=== PATIENT | male | born 1940 | race African-American/Black ===

== ENCOUNTER 2019-11-08 00:29 | Inpatient (IN) | payer MEDICARE, MEDICAID ==
[~2019-11-08] VITALS: Ht 177.8 cm; Wt 116.7 kg
[~2019-11-08 00:29] MED LIST: ASPI-1158 MT; ATOR40TA70 MT; DILT360C27 MT; FURO40TA5 PO; HYDR-4135 PO
[2019-11-08] MEDS ORDERED: ACETAMINOPHEN 500MG TABLET PO ONE (01:15)
[2019-11-08 01:38] LABS: BASOPHILS % 0.2 % (0.0-2.0); EOSINOPHILS % 0.2 % (0.0-5.0); HEMATOCRIT. 33.5 % (42.0-52.0); HEMOGLOBIN. 10.7 g/dL (14.0-18.0); LYMPHOCYTES % 10.2 % (20.0-50.0); MEAN CORPUSCULAR HEMOGLOBIN 26.9 pg (28.0-32.0); MONOCYTES % 11.6 % (2.0-8.0); NEUTROPHILS % 77.8 % (40.0-76.0); PLATELET 196 x1000/uL (130-400); RED BLOOD CELL COUNT 3.98 mill/uL (4.7-6.1); RED CELL DISTRIBUTION WIDTH 15.8 % (11.6-14.6)
[2019-11-08 01:46] LABS: CHLORIDE 105 mEq/L (98-107)
[2019-11-08 01:55] LABS: D-DIMER 5.07 mg/L FEU (<0.50); PROTHROMBIN TIME 11.1 sec (9.6-11.0)
[2019-11-08 01:56] LABS: CREATINE KINASE 352 IU/L (39-308)
[2019-11-08] MEDS ORDERED: MAGNESIUM 2 G PREMIX 50 ML IV ONE (02:00)
[2019-11-08] MEDS ORDERED: PIPERACILLIN/TAZOBACTAM 3.375GM/50ML PREMIX IV SCH (02:00)
[2019-11-08] MEDS ORDERED: VANCOMYCIN 1 G PREMIX 200 ML IV SCH ×3 (02:00→21:00)
[2019-11-08] MEDS ORDERED: AZITHROMYCIN 500 MG in DEXT 5% WATER 250 ML IV SCH ×2 (02:00→11:00)
[2019-11-08] MEDS ORDERED: CALCIUM GLUCONATE 100MG/ML 10ML VIAL IV ONE (02:00)
[2019-11-08] MEDS ORDERED: ASPIRIN 81MG TABLET PO SCH (02:15)
[2019-11-08] MEDS ORDERED: CALCIUM GLUCONATE 1,000 MG in DEXT 5% WATER 100 ML IV SCH (03:00)
[2019-11-08 03:08] LABS: CLARITY URINE CLOUDY (CLEAR); COLOR URINE YELLOW (YELLOW); KETONES URINE NEGATIVE (NEGATIVE); LEUKOCYTE ESTERASE URINE 3+ (NEGATIVE); NITRITE URINE NEGATIVE (NEGATIVE); OCCULT BLOOD URINE NEGATIVE (NEGATIVE); PROTEIN URINE 2+ (NEGATIVE); SPECIFIC GRAVITY URINE 1.013 (1.005-1.030); UROBILINOGEN URINE 0.2 E.U./dL (0.2-1.0)
[2019-11-08] MEDS ORDERED: GUAIFENESIN 200MG/10ML SUGAR FREE UDC PO PRN (11:00)
[2019-11-08] MEDS ORDERED: PIPERACILLIN/TAZ 3.375G PREMIX 50 ML IV SCH (11:00)
[2019-11-08] MEDS ORDERED: ENOXAPARIN 40MG/0.4ML SYR SUBCUT SCH (11:00)
[2019-11-08] MEDS ORDERED: ONDANSETRON HCL 4MG/2ML INJ IV PRN (11:00)
[2019-11-08] MEDS ORDERED: LIDOCAINE HCL/PF 1% 2ML VIAL ONE (11:12)
[2019-11-08] MEDS ORDERED: PIPERACILLIN/TAZ 3.375G PREMIX 50 ML IV NR (11:30)
[2019-11-08] MEDS: CLONIDINE 0.1MG TABLET PO PRN (11:31)
[2019-11-08 12:00] VITALS: BP 155/89
[2019-11-08 12:00] LABS: BG BASE EXCESS 1.9 mmol/L (-2.0-2.0); BG CARBOXYHEMOGLOBIN 0.3 % (0.5-1.5); BG DEOXYHEMOGLOBIN 19.2 % (0.0-5.0); BG FRACTION INSPIRED OXYGEN 21; BG HCO3 ACT 26.3 mmol/L (22.0-26.0); BG METHEMOGLOBIN 0.2 % (0.0-1.5); BG OXYGEN SATURATION 80.7 % (92.0-98.5); BG OXYHEMOGLOBIN 80.3 % (94.0-97.0); BG PCO2 40.7 mmHg (35.0-45.0); BG PH 7.429 (7.350-7.450); BG PO2 46.7 mmHg (75.0-100.0); BG SAMPLE SITE RIGHT RADIAL; BG TOTAL HEMOGLOBIN 10.5 g/dL (12.0-18.0); BG VENT MODE ROOM AIR
[2019-11-08 12:25] VITALS: BP 155/89
[2019-11-08] MEDS ORDERED: IPRATROPIUM/ALBUTEROL 0.5-3(2.5)MG/3ML NEB HHN SCH (13:00)
[2019-11-08 16:00] VITALS: BP 148/78
[2019-11-08] MEDS: HYDRALAZINE HCL 50MG TABLET PO SCH ×2 (16:51→22:29)
[2019-11-08] MEDS: ENOXAPARIN 30MG/0.3ML SYR SUBCUT SCH (16:51)
[2019-11-08] MEDS: POTASSIUM CHLORIDE 20MEQ TABLET SR PO SCH (16:52)
[2019-11-08] MEDS: FUROSEMIDE 40MG TABLET PO SCH (16:52)
[2019-11-08] MEDS: PIPERACILLIN/TAZOBACTAM 2.25 G in DEXTROSE 5% WATER 50 ML IV SCH (18:31)
[2019-11-08 20:00] VITALS: BP 156/80
[2019-11-08] MEDS: ACETAMINOPHEN 325MG TABLET PO PRN (21:43)
[2019-11-08] MEDS: GUAIFENESIN 600MG ER TABLET PO SCH ×2 (22:24→22:29)
[2019-11-08] MEDS: DILTIAZEM HCL 30MG TABLET PO SCH (22:28)
[2019-11-09] VITALS: BP 113/61
[2019-11-09] MEDS: PIPERACILLIN/TAZOBACTAM 2.25 G in DEXTROSE 5% WATER 50 ML IV SCH ×4 (00:34→17:53)
[2019-11-09 04:00] VITALS: BP 101/57
[2019-11-09] MEDS: DILTIAZEM HCL 30MG TABLET PO SCH ×3 (05:35→22:05)
[2019-11-09] MEDS: HYDRALAZINE HCL 50MG TABLET PO SCH (05:37)
[2019-11-09] MEDS: ACETAMINOPHEN 325MG TABLET PO PRN ×2 (05:42→20:30)
[2019-11-09 06:56] LABS: BASOPHILS % 0.4 % (0.0-2.0); EOSINOPHILS % 0.1 % (0.0-5.0); HEMATOCRIT. 31.6 % (42.0-52.0); HEMOGLOBIN. 10.4 g/dL (14.0-18.0); LYMPHOCYTES % 12.2 % (20.0-50.0); MEAN CORPUSCULAR HEMOGLOBIN 27.5 pg (28.0-32.0); MEAN PLATELET VOLUME 8.1 fl (7.4-10.4); MONOCYTES % 7.5 % (2.0-8.0); NEUTROPHILS % 79.8 % (40.0-76.0); PLATELET 184 x1000/uL (130-400); RED BLOOD CELL COUNT 3.77 mill/uL (4.7-6.1); RED CELL DISTRIBUTION WIDTH 16.3 % (11.6-14.6)
[2019-11-09 08:00] VITALS: BP 131/81
[2019-11-09] MEDS: AZITHROMYCIN 250 MG in DEXT 5% WATER 250 ML IV SCH (08:08)
[2019-11-09] MEDS: ENOXAPARIN 30MG/0.3ML SYR SUBCUT SCH ×2 (10:17→20:29)
[2019-11-09] MEDS: FUROSEMIDE 40MG TABLET PO SCH (10:17)
[2019-11-09] MEDS: ASPIRIN 81MG TABLET PO SCH (10:17)
[2019-11-09] MEDS: POTASSIUM CHLORIDE 20MEQ TABLET SR PO SCH (10:17)
[2019-11-09 12:00] VITALS: BP 113/58
[2019-11-09 16:00] VITALS: BP 126/52
[2019-11-09] MEDS ORDERED: DEXTROSE 50% WATER 50ML SYRINGE IV PRN (19:15)
[2019-11-09 20:00] VITALS: BP 158/71
[2019-11-09] MEDS: ALBUTEROL 6.7GM HFA INHALER ORI SCH ×2 (20:00→22:30)
[2019-11-09] MEDS: GUAIFENESIN 600MG ER TABLET PO SCH (20:29)
[2019-11-09] MEDS: BLOOD SUGAR DIAGNOSTIC STRIP TEST SCH (20:31)
[2019-11-09] MEDS: INSULIN LISPRO 100 UNITS/ML SUBCUT SCH (20:38)
[2019-11-10] VITALS: BP 131/45
[2019-11-10] MEDS: PIPERACILLIN/TAZOBACTAM 2.25 G in DEXTROSE 5% WATER 50 ML IV SCH ×4 (00:17→17:35)
[2019-11-10] MEDS: ACETAMINOPHEN 325MG TABLET PO PRN ×3 (00:17→21:12)
[2019-11-10] MEDS: ALBUTEROL 6.7GM HFA INHALER ORI SCH ×4 (02:57→20:00)
[2019-11-10 04:00] VITALS: BP 128/85
[2019-11-10] MEDS: DILTIAZEM HCL 30MG TABLET PO SCH ×3 (05:42→21:13)
[2019-11-10] MEDS: AZITHROMYCIN 250 MG in DEXT 5% WATER 250 ML IV SCH ×2 (05:49→17:35)
[2019-11-10 06:03] LABS: BASOPHILS % 0.4 % (0.0-2.0); EOSINOPHILS % 1.7 % (0.0-5.0); HEMATOCRIT. 31.1 % (42.0-52.0); HEMOGLOBIN. 10.3 g/dL (14.0-18.0); LYMPHOCYTES % 15.2 % (20.0-50.0); MEAN CORPUSCULAR VOLUME 84.4 fL (80.0-94.0); MEAN PLATELET VOLUME 8.3 fl (7.4-10.4); MONOCYTES % 7.8 % (2.0-8.0); NEUTROPHILS % 74.9 % (40.0-76.0); PLATELET 174 x1000/uL (130-400); RED BLOOD CELL COUNT 3.69 mill/uL (4.7-6.1); RED CELL DISTRIBUTION WIDTH 16.3 % (11.6-14.6)
[2019-11-10 06:19] LABS: CHLORIDE 105 mEq/L (98-107)
[2019-11-10 06:26] LABS: PHOSPHORUS 2.8 mg/dL (2.5-4.9)
[2019-11-10] MEDS: BLOOD SUGAR DIAGNOSTIC STRIP TEST SCH ×4 (07:51→21:00)
[2019-11-10 08:00] VITALS: BP 102/85
[2019-11-10] MEDS: ENOXAPARIN 30MG/0.3ML SYR SUBCUT SCH (09:28)
[2019-11-10] MEDS: POTASSIUM CHLORIDE 20MEQ TABLET SR PO SCH (09:29)
[2019-11-10] MEDS: GUAIFENESIN 600MG ER TABLET PO SCH ×2 (09:29→21:12)
[2019-11-10] MEDS: ASPIRIN 81MG TABLET PO SCH (09:29)
[2019-11-10] MEDS: FUROSEMIDE 40MG TABLET PO SCH (09:29)
[2019-11-10] MEDS: INSULIN LISPRO 100 UNITS/ML SUBCUT SCH ×4 (09:30→21:00)
[2019-11-10 12:00] VITALS: BP 112/46
[2019-11-10] MEDS ORDERED: NON FORMULARY PATIENT HOME MED XX SCH (15:45)
[2019-11-10] MEDS: FLUTICASONE FUROATE 100 1 INH/CAP ORI SCH (17:38)
[2019-11-10 20:00] VITALS: BP 101/72
[2019-11-11 00:05] VITALS: BP 129/64
[2019-11-11] MEDS: PIPERACILLIN/TAZOBACTAM 2.25 G in DEXTROSE 5% WATER 50 ML IV SCH ×5 (00:18→23:37)
[2019-11-11] MEDS: ALBUTEROL 6.7GM HFA INHALER ORI SCH ×4 (02:17→20:37)
[2019-11-11 04:00] VITALS: BP 145/59
[2019-11-11] MEDS: ACETAMINOPHEN 325MG TABLET PO PRN (05:40)
[2019-11-11] MEDS: DILTIAZEM HCL 30MG TABLET PO SCH ×3 (05:41→21:05)
[2019-11-11] MEDS: BLOOD SUGAR DIAGNOSTIC STRIP TEST SCH ×4 (05:41→21:14)
[2019-11-11] MEDS: INSULIN LISPRO 100 UNITS/ML SUBCUT SCH ×4 (07:53→21:00)
[2019-11-11 08:00] VITALS: BP 102/46
[2019-11-11] MEDS: ENOXAPARIN 40MG/0.4ML SYR SUBCUT SCH (09:02)
[2019-11-11] MEDS: ASPIRIN 81MG TABLET PO SCH (09:02)
[2019-11-11] MEDS: FUROSEMIDE 40MG TABLET PO SCH (09:02)
[2019-11-11] MEDS: GUAIFENESIN 600MG ER TABLET PO SCH ×2 (09:02→20:37)
[2019-11-11] MEDS: FLUTICASONE FUROATE 100 1 INH/CAP ORI SCH ×2 (09:57→16:43)
[2019-11-11 11:12] LABS: BASOPHILS % 0.2 % (0.0-2.0); EOSINOPHILS % 1.7 % (0.0-5.0); HEMATOCRIT. 27.2 % (42.0-52.0); HEMOGLOBIN. 8.9 g/dL (14.0-18.0); LYMPHOCYTES % 8.8 % (20.0-50.0); MEAN CORPUSCULAR HEMOGLOBIN 27.4 pg (28.0-32.0); MEAN CORPUSCULAR VOLUME 83.4 fL (80.0-94.0); MEAN PLATELET VOLUME 7.8 fl (7.4-10.4); MONOCYTES % 5.2 % (2.0-8.0); NEUTROPHILS % 84.1 % (40.0-76.0); PLATELET 175 x1000/uL (130-400); RED BLOOD CELL COUNT 3.26 mill/uL (4.7-6.1); RED CELL DISTRIBUTION WIDTH 15.9 % (11.6-14.6)
[2019-11-11 12:00] VITALS: BP 152/56
[2019-11-11] MEDS: POTASSIUM CHLORIDE 20MEQ/PACKET PO SCH (13:18)
[2019-11-11 16:00] VITALS: BP 162/48
[2019-11-11] MEDS: AZITHROMYCIN 250 MG in DEXT 5% WATER 250 ML IV SCH (17:08)
[2019-11-11 20:00] VITALS: BP 168/64
[2019-11-12] VITALS (7 sets, daily range): BP systolic 115–177; BP diastolic 53–83
[2019-11-12] MEDS: ACETAMINOPHEN 325MG TABLET PO PRN ×3 (02:42→22:22)
[2019-11-12] MEDS: PIPERACILLIN/TAZOBACTAM 2.25 G in DEXTROSE 5% WATER 50 ML IV SCH ×4 (05:28→23:53)
[2019-11-12] MEDS: CLONIDINE 0.1MG TABLET PO PRN ×2 (05:29→22:22)
[2019-11-12] MEDS: DILTIAZEM HCL 30MG TABLET PO SCH ×3 (05:29→22:08)
[2019-11-12] MEDS: BLOOD SUGAR DIAGNOSTIC STRIP TEST SCH ×4 (06:57→21:00)
[2019-11-12] MEDS: ASPIRIN 81MG TABLET PO SCH (09:27)
[2019-11-12] MEDS: FUROSEMIDE 40MG TABLET PO SCH (09:28)
[2019-11-12] MEDS: GUAIFENESIN 600MG ER TABLET PO SCH ×2 (09:28→22:07)
[2019-11-12] MEDS: POTASSIUM CHLORIDE 20MEQ/PACKET PO SCH (09:28)
[2019-11-12] MEDS: ENOXAPARIN 40MG/0.4ML SYR SUBCUT SCH (09:28)
[2019-11-12] MEDS: INSULIN LISPRO 100 UNITS/ML SUBCUT SCH ×4 (09:29→22:47)
[2019-11-12 10:40] LABS: BASOPHILS % 0.2 % (0.0-2.0); EOSINOPHILS % 0.5 % (0.0-5.0); HEMATOCRIT. 27.5 % (42.0-52.0); MEAN CORPUSCULAR HEMOGLOBIN 27.3 pg (28.0-32.0); MEAN CORPUSCULAR VOLUME 83.4 fL (80.0-94.0); MEAN PLATELET VOLUME 7.8 fl (7.4-10.4); MONOCYTES % 6.3 % (2.0-8.0); PLATELET 191 x1000/uL (130-400); RED CELL DISTRIBUTION WIDTH 16.3 % (11.6-14.6)
[2019-11-12] MEDS: FLUTICASONE FUROATE 100 1 INH/CAP ORI SCH ×2 (12:13→18:11)
[2019-11-12] MEDS: ALBUTEROL 6.7GM HFA INHALER ORI SCH (13:28)
[2019-11-12] MEDS: AZITHROMYCIN 250 MG TABLET PO SCH (17:38)
[2019-11-13 00:44] VITALS: BP 146/48
[2019-11-13] MEDS: ALBUTEROL 6.7GM HFA INHALER ORI SCH ×5 (03:38→22:21)
[2019-11-13] MEDS: ACETAMINOPHEN 325MG TABLET PO PRN ×2 (03:38→09:38)
[2019-11-13 04:00] VITALS: BP 123/34
[2019-11-13] MEDS: PIPERACILLIN/TAZOBACTAM 2.25 G in DEXTROSE 5% WATER 50 ML IV SCH ×3 (06:08→17:22)
[2019-11-13] MEDS: DILTIAZEM HCL 30MG TABLET PO SCH ×3 (06:40→21:47)
[2019-11-13] MEDS: BLOOD SUGAR DIAGNOSTIC STRIP TEST SCH ×4 (08:02→21:46)
[2019-11-13] MEDS: FLUTICASONE FUROATE 100 1 INH/CAP ORI SCH ×2 (09:37→17:22)
[2019-11-13] MEDS: GUAIFENESIN 600MG ER TABLET PO SCH ×2 (09:38→21:48)
[2019-11-13] MEDS: POTASSIUM CHLORIDE 20MEQ/PACKET PO SCH (09:38)
[2019-11-13] MEDS: FUROSEMIDE 40MG TABLET PO SCH (09:38)
[2019-11-13] MEDS: ASPIRIN 81MG TABLET PO SCH (09:38)
[2019-11-13] MEDS: ENOXAPARIN 30MG/0.3ML SYR SUBCUT SCH ×2 (09:39→21:46)
[2019-11-13] MEDS: INSULIN LISPRO 100 UNITS/ML SUBCUT SCH ×4 (09:51→21:00)
[2019-11-13] MEDS: HYDRALAZINE HCL 25MG TABLET PO SCH ×2 (14:05→21:47)
[2019-11-13] MEDS: METHYLPREDNISOLONE SOD SUCC 40 MG/ML VIAL IV SCH ×2 (15:11→17:22)
[2019-11-13] MEDS: AZITHROMYCIN 250 MG TABLET PO SCH (17:23)
[2019-11-13 20:00] VITALS: BP 107/88
[2019-11-13] MEDS ORDERED: INSULIN GLARGINE UD 100 UNITS/ML SYR SUBCUT SCH (22:00)
[2019-11-14] VITALS: BP 183/89
[2019-11-14] MEDS: ALBUTEROL 6.7GM HFA INHALER ORI SCH (02:00)
[2019-11-14 04:00] VITALS: BP 181/111
[2019-11-14] MEDS: DILTIAZEM HCL 30MG TABLET PO SCH ×3 (06:17→21:07)
[2019-11-14] MEDS: HYDRALAZINE HCL 25MG TABLET PO SCH ×3 (06:18→21:06)
[2019-11-14] MEDS: BLOOD SUGAR DIAGNOSTIC STRIP TEST SCH ×4 (07:13→21:17)
[2019-11-14 08:00] VITALS: BP 165/75
[2019-11-14] MEDS: POTASSIUM CHLORIDE 20MEQ/PACKET PO SCH (08:35)
[2019-11-14] MEDS: ENOXAPARIN 30MG/0.3ML SYR SUBCUT SCH ×2 (08:35→21:08)
[2019-11-14] MEDS: INSULIN LISPRO 100 UNITS/ML SUBCUT SCH ×4 (08:36→22:28)
[2019-11-14] MEDS: GUAIFENESIN 600MG ER TABLET PO SCH ×2 (08:36→21:06)
[2019-11-14] MEDS: FUROSEMIDE 40MG TABLET PO SCH (08:36)
[2019-11-14] MEDS: METHYLPREDNISOLONE SOD SUCC 40 MG/ML VIAL IV SCH ×2 (08:36→16:42)
[2019-11-14] MEDS: ASPIRIN 81MG TABLET PO SCH (08:36)
[2019-11-14] MEDS: FLUTICASONE FUROATE 100 1 INH/CAP ORI SCH ×2 (09:00→17:00)
[2019-11-14 12:30] VITALS: BP 176/99
[2019-11-14 16:00] VITALS: BP 164/91
[2019-11-14 20:00] VITALS: BP 157/72
[2019-11-14] MEDS: INSULIN GLARGINE UD 100 UNITS/ML SYR SUBCUT SCH (22:28)
[2019-11-15] MEDS: ALBUTEROL 6.7GM HFA INHALER ORI SCH ×4 (02:00→20:00)
[2019-11-15 04:00] VITALS: BP 169/88
[2019-11-15] MEDS: HYDRALAZINE HCL 25MG TABLET PO SCH (05:07)
[2019-11-15] MEDS: DILTIAZEM HCL 30MG TABLET PO SCH ×3 (05:08→21:19)
[2019-11-15] MEDS: BLOOD SUGAR DIAGNOSTIC STRIP TEST SCH ×4 (06:13→21:00)
[2019-11-15 08:30] VITALS: BP 157/73
[2019-11-15] MEDS: ASPIRIN 81MG TABLET PO SCH (08:32)
[2019-11-15] MEDS: ENOXAPARIN 30MG/0.3ML SYR SUBCUT SCH ×2 (08:32→21:18)
[2019-11-15] MEDS: GUAIFENESIN 600MG ER TABLET PO SCH ×2 (08:32→21:26)
[2019-11-15] MEDS: METHYLPREDNISOLONE SOD SUCC 40 MG/ML VIAL IV SCH (08:32)
[2019-11-15] MEDS: FUROSEMIDE 40MG TABLET PO SCH (08:32)
[2019-11-15] MEDS: POTASSIUM CHLORIDE 20MEQ/PACKET PO SCH (08:33)
[2019-11-15] MEDS: INSULIN LISPRO 100 UNITS/ML SUBCUT SCH ×4 (08:34→22:26)
[2019-11-15] MEDS: FLUTICASONE FUROATE 100 1 INH/CAP ORI SCH ×2 (09:00→16:51)
[2019-11-15 10:29] LABS: HEMATOCRIT. 35.5 % (42.0-52.0); HEMOGLOBIN. 11.8 g/dL (14.0-18.0); MEAN CORPUSCULAR HEMOGLOBIN 27.7 pg (28.0-32.0); MEAN CORPUSCULAR VOLUME 83.2 fL (80.0-94.0); MEAN PLATELET VOLUME 8.3 fl (7.4-10.4); PLATELET 290 x1000/uL (130-400); RED BLOOD CELL COUNT 4.27 mill/uL (4.7-6.1); RED CELL DISTRIBUTION WIDTH 16.8 % (11.6-14.6)
[2019-11-15 10:48] LABS: PHOSPHORUS 2.7 mg/dL (2.5-4.9)
[2019-11-15 12:30] VITALS: BP 133/78
[2019-11-15 12:45] LABS: NUCLEATED RED BLOOD CELLS 1 /100 WBC; PLATELET ESTIMATE NORMAL
[2019-11-15] MEDS: HYDRALAZINE HCL 50MG TABLET PO SCH ×2 (14:23→21:19)
[2019-11-15 16:00] VITALS: BP 107/85
[2019-11-15] MEDS ORDERED: METHYLPREDNISOLONE SOD SUCC 40 MG/ML VIAL IV SCH (17:00)
[2019-11-15 20:00] VITALS: BP 174/127
[2019-11-15] MEDS: INSULIN GLARGINE UD 100 UNITS/ML SYR SUBCUT SCH (21:25)
[2019-11-15 22:59] VITALS: BP 165/90
[2019-11-16] VITALS: BP 189/71
[2019-11-16] MEDS: CLONIDINE 0.1MG TABLET PO PRN (00:38)
[2019-11-16] MEDS: ALBUTEROL 6.7GM HFA INHALER ORI SCH ×5 (01:12→21:39)
[2019-11-16 04:00] VITALS: BP 191/109
[2019-11-16] MEDS: DILTIAZEM HCL 30MG TABLET PO SCH ×3 (05:10→21:33)
[2019-11-16] MEDS: HYDRALAZINE HCL 50MG TABLET PO SCH (05:10)
[2019-11-16 08:00] VITALS: BP 137/90
[2019-11-16] MEDS: BLOOD SUGAR DIAGNOSTIC STRIP TEST SCH ×4 (08:36→21:19)
[2019-11-16] MEDS: GUAIFENESIN 600MG ER TABLET PO SCH ×2 (08:41→21:32)
[2019-11-16] MEDS: FUROSEMIDE 40MG TABLET PO SCH (08:41)
[2019-11-16] MEDS: ASPIRIN 81MG TABLET PO SCH (08:41)
[2019-11-16] MEDS: INSULIN LISPRO 100 UNITS/ML SUBCUT SCH ×4 (08:42→21:31)
[2019-11-16] MEDS: ENOXAPARIN 30MG/0.3ML SYR SUBCUT SCH ×2 (08:42→21:31)
[2019-11-16] MEDS: FLUTICASONE FUROATE 100 1 INH/CAP ORI SCH ×2 (09:00→16:47)
[2019-11-16] MEDS ORDERED: INSULIN GLARGINE UD 100 UNITS/ML SYR SUBCUT SCH (10:00)
[2019-11-16 12:00] VITALS: BP 150/83
[2019-11-16] MEDS: HYDRALAZINE HCL 100MG TABLET PO SCH ×2 (13:00→21:33)
[2019-11-16 16:00] VITALS: BP 153/86
[2019-11-16 20:00] VITALS: BP 193/91
[2019-11-16] MEDS: INSULIN GLARGINE UD 100 UNITS/ML SYR SUBCUT SCH (21:32)
[2019-11-17] VITALS (7 sets, daily range): BP systolic 126–172; BP diastolic 67–124
[2019-11-17] MEDS: ALBUTEROL 6.7GM HFA INHALER ORI SCH ×4 (03:57→20:00)
[2019-11-17] MEDS: HYDRALAZINE HCL 100MG TABLET PO SCH ×3 (05:33→22:32)
[2019-11-17] MEDS: DILTIAZEM HCL 30MG TABLET PO SCH (05:33)
[2019-11-17] MEDS: BLOOD SUGAR DIAGNOSTIC STRIP TEST SCH ×4 (06:22→22:19)
[2019-11-17] MEDS: INSULIN LISPRO 100 UNITS/ML SUBCUT SCH ×4 (08:10→22:30)
[2019-11-17] MEDS: ASPIRIN 81MG TABLET PO SCH (09:35)
[2019-11-17] MEDS: FUROSEMIDE 40MG TABLET PO SCH (09:35)
[2019-11-17] MEDS: GUAIFENESIN 600MG ER TABLET PO SCH ×2 (09:35→22:29)
[2019-11-17] MEDS: ENOXAPARIN 30MG/0.3ML SYR SUBCUT SCH ×2 (09:35→22:33)
[2019-11-17] MEDS: FLUTICASONE FUROATE 100 1 INH/CAP ORI SCH ×2 (10:05→17:46)
[2019-11-17] MEDS: SPIRONOLACTONE 25MG TABLET PO SCH (12:58)
[2019-11-17] MEDS: PREDNISONE 20MG TABLET PO SCH (12:59)
[2019-11-17] MEDS: DILTIAZEM HCL 120MG CAPSULE CD 24HR PO SCH ×2 (12:59→22:31)
[2019-11-17] MEDS: INSULIN GLARGINE UD 100 UNITS/ML SYR SUBCUT SCH (22:30)
[2019-11-18] VITALS: BP 161/71
[2019-11-18] MEDS: ALBUTEROL 6.7GM HFA INHALER ORI SCH (03:11)
[2019-11-18 04:00] VITALS: BP 158/106
[2019-11-18] MEDS: BLOOD SUGAR DIAGNOSTIC STRIP TEST SCH ×4 (06:49→21:00)
[2019-11-18] MEDS: HYDRALAZINE HCL 100MG TABLET PO SCH ×3 (06:54→22:47)
[2019-11-18 08:00] VITALS: BP 143/97
[2019-11-18] MEDS ORDERED: INSULIN GLARGINE UD 100 UNITS/ML SYR SUBCUT SCH (10:00)
[2019-11-18] MEDS: ENOXAPARIN 30MG/0.3ML SYR SUBCUT SCH ×2 (10:16→22:48)
[2019-11-18] MEDS: DILTIAZEM HCL 180MG CAPSULE CD 24HR PO SCH ×2 (10:17→22:47)
[2019-11-18] MEDS: GUAIFENESIN 600MG ER TABLET PO SCH ×2 (10:17→22:47)
[2019-11-18] MEDS: PREDNISONE 20MG TABLET PO SCH (10:17)
[2019-11-18] MEDS: ASPIRIN 81MG TABLET PO SCH (10:17)
[2019-11-18] MEDS: FUROSEMIDE 40MG TABLET PO SCH (10:17)
[2019-11-18] MEDS: FLUTICASONE FUROATE 100 1 INH/CAP ORI SCH ×2 (10:18→18:47)
[2019-11-18] MEDS: SPIRONOLACTONE 25MG TABLET PO SCH (10:18)
[2019-11-18] MEDS: INSULIN LISPRO 100 UNITS/ML SUBCUT SCH ×4 (10:19→23:58)
[2019-11-18 12:00] VITALS: BP 135/99
[2019-11-18 16:00] VITALS: BP 128/86
[2019-11-18 21:41] VITALS: BP 161/78
[2019-11-18] MEDS: INSULIN GLARGINE UD 100 UNITS/ML SYR SUBCUT SCH (23:58)
[2019-11-19] VITALS: BP 171/79
[2019-11-19 04:00] VITALS: BP 163/74
[2019-11-19] MEDS: HYDRALAZINE HCL 100MG TABLET PO SCH ×3 (06:00→21:27)
[2019-11-19] MEDS: BLOOD SUGAR DIAGNOSTIC STRIP TEST SCH ×4 (06:15→21:27)
[2019-11-19 06:26] LABS: HEMATOCRIT. 32.1 % (42.0-52.0); HEMOGLOBIN. 10.6 g/dL (14.0-18.0); MEAN CORPUSCULAR HEMOGLOBIN 27.6 pg (28.0-32.0); MEAN CORPUSCULAR VOLUME 83.2 fL (80.0-94.0); PLATELET 314 x1000/uL (130-400); RED BLOOD CELL COUNT 3.85 mill/uL (4.7-6.1); RED CELL DISTRIBUTION WIDTH 16.4 % (11.6-14.6)
[2019-11-19 07:01] LABS: PHOSPHORUS 3.4 mg/dL (2.5-4.9)
[2019-11-19 08:00] VITALS: BP 148/73
[2019-11-19] MEDS: DILTIAZEM HCL 180MG CAPSULE CD 24HR PO SCH ×2 (09:22→21:00)
[2019-11-19] MEDS: ASPIRIN 81MG TABLET PO SCH (09:22)
[2019-11-19] MEDS: PREDNISONE 20MG TABLET PO SCH (09:22)
[2019-11-19] MEDS: FUROSEMIDE 40MG TABLET PO SCH (09:23)
[2019-11-19] MEDS: SPIRONOLACTONE 25MG TABLET PO SCH (09:23)
[2019-11-19] MEDS: FLUTICASONE FUROATE 100 1 INH/CAP ORI SCH ×2 (09:24→17:02)
[2019-11-19] MEDS: ENOXAPARIN 30MG/0.3ML SYR SUBCUT SCH ×2 (09:25→21:24)
[2019-11-19] MEDS: GUAIFENESIN 600MG ER TABLET PO SCH ×3 (09:27→21:26)
[2019-11-19] MEDS: INSULIN LISPRO 100 UNITS/ML SUBCUT SCH ×4 (09:28→21:30)
[2019-11-19 11:03] LABS: PLATELET ESTIMATE NORMAL
[2019-11-19 12:00] VITALS: BP 179/90
[2019-11-19] MEDS: DOXAZOSIN MESYLATE 4MG TABLET PO SCH (12:00)
[2019-11-19] MEDS: INSULIN GLARGINE UD 100 UNITS/ML SYR SUBCUT SCH ×2 (12:01→21:30)
[2019-11-19 16:00] VITALS: BP 114/65
[2019-11-19 20:00] VITALS: BP 117/59
[2019-11-19] MEDS: ALBUTEROL 6.7GM HFA INHALER ORI SCH (20:00)
[2019-11-20] VITALS: BP 140/67
[2019-11-20] MEDS: ALBUTEROL 6.7GM HFA INHALER ORI SCH ×4 (02:00→20:00)
[2019-11-20 04:00] VITALS: BP 110/56
[2019-11-20] MEDS: HYDRALAZINE HCL 100MG TABLET PO SCH ×3 (05:31→22:00)
[2019-11-20] MEDS: BLOOD SUGAR DIAGNOSTIC STRIP TEST SCH ×4 (05:59→21:00)
[2019-11-20 08:00] VITALS: BP 147/52
[2019-11-20] MEDS: DILTIAZEM HCL 180MG CAPSULE CD 24HR PO SCH ×3 (09:00→22:10)
[2019-11-20] MEDS: FLUTICASONE FUROATE 100 1 INH/CAP ORI SCH ×2 (09:00→17:00)
[2019-11-20] MEDS: INSULIN LISPRO 100 UNITS/ML SUBCUT SCH ×4 (09:14→22:09)
[2019-11-20] MEDS: PREDNISONE 20MG TABLET PO SCH (09:15)
[2019-11-20] MEDS: GUAIFENESIN 600MG ER TABLET PO SCH ×3 (09:15→22:10)
[2019-11-20] MEDS: ENOXAPARIN 30MG/0.3ML SYR SUBCUT SCH ×2 (09:15→22:11)
[2019-11-20] MEDS: ASPIRIN 81MG TABLET PO SCH (09:15)
[2019-11-20] MEDS: DOXAZOSIN MESYLATE 4MG TABLET PO SCH (09:39)
[2019-11-20] MEDS: INSULIN GLARGINE UD 100 UNITS/ML SYR SUBCUT SCH ×2 (11:44→22:10)
[2019-11-20 12:00] VITALS: BP 126/66
[2019-11-20 16:00] VITALS: BP 122/68
[2019-11-20 20:00] VITALS: BP 139/74
[2019-11-21] VITALS: BP 162/77
[2019-11-21] MEDS: ALBUTEROL 6.7GM HFA INHALER ORI SCH ×4 (01:33→20:00)
[2019-11-21 04:00] VITALS: BP 128/66
[2019-11-21] MEDS: HYDRALAZINE HCL 100MG TABLET PO SCH ×3 (06:10→22:00)
[2019-11-21 06:41] LABS: BASOPHILS % 0.3 % (0.0-2.0); EOSINOPHILS % 4.7 % (0.0-5.0); HEMATOCRIT. 30.2 % (42.0-52.0); HEMOGLOBIN. 9.6 g/dL (14.0-18.0); LYMPHOCYTES % 15.4 % (20.0-50.0); MEAN CORPUSCULAR HEMOGLOBIN 26.5 pg (28.0-32.0); MEAN CORPUSCULAR VOLUME 83.3 fL (80.0-94.0); MEAN PLATELET VOLUME 8.2 fl (7.4-10.4); MONOCYTES % 8.8 % (2.0-8.0); NEUTROPHILS % 70.8 % (40.0-76.0); PLATELET 290 x1000/uL (130-400); RED BLOOD CELL COUNT 3.63 mill/uL (4.7-6.1); RED CELL DISTRIBUTION WIDTH 16.1 % (11.6-14.6)
[2019-11-21] MEDS: BLOOD SUGAR DIAGNOSTIC STRIP TEST SCH ×4 (06:52→21:49)
[2019-11-21 07:29] LABS: PHOSPHORUS 3.5 mg/dL (2.5-4.9)
[2019-11-21 08:00] VITALS: BP 120/72
[2019-11-21] MEDS: INSULIN LISPRO 100 UNITS/ML SUBCUT SCH ×4 (08:10→21:00)
[2019-11-21] MEDS: FLUTICASONE FUROATE 100 1 INH/CAP ORI SCH ×2 (09:00→17:00)
[2019-11-21] MEDS: DILTIAZEM HCL 180MG CAPSULE CD 24HR PO SCH ×2 (09:41→21:00)
[2019-11-21] MEDS: GUAIFENESIN 600MG ER TABLET PO SCH ×2 (09:42→21:32)
[2019-11-21] MEDS: ASPIRIN 81MG TABLET PO SCH (09:42)
[2019-11-21] MEDS: PREDNISONE 20MG TABLET PO SCH (09:42)
[2019-11-21] MEDS: DOXAZOSIN MESYLATE 4MG TABLET PO SCH (09:42)
[2019-11-21] MEDS: ENOXAPARIN 30MG/0.3ML SYR SUBCUT SCH ×2 (09:43→21:32)
[2019-11-21] MEDS: INSULIN GLARGINE UD 100 UNITS/ML SYR SUBCUT SCH ×2 (09:46→22:54)
[2019-11-21 12:00] VITALS: BP 117/61
[2019-11-21 16:00] VITALS: BP_SYST 119; BP_DIAS 89; BP_DIAS 91
[2019-11-21 20:00] VITALS: BP 116/53
[2019-11-22 00:49] VITALS: BP 135/52
[2019-11-22] MEDS: ALBUTEROL 6.7GM HFA INHALER ORI SCH ×4 (02:00→21:40)
[2019-11-22 04:00] VITALS: BP 169/76
[2019-11-22] MEDS: CLONIDINE 0.1MG TABLET PO PRN (05:44)
[2019-11-22] MEDS: HYDRALAZINE HCL 100MG TABLET PO SCH ×3 (05:44→21:35)
[2019-11-22] MEDS: BLOOD SUGAR DIAGNOSTIC STRIP TEST SCH ×4 (07:10→21:36)
[2019-11-22 08:00] VITALS: BP 123/52
[2019-11-22] MEDS: ASPIRIN 81MG TABLET PO SCH (08:19)
[2019-11-22] MEDS: ENOXAPARIN 30MG/0.3ML SYR SUBCUT SCH ×2 (08:19→21:43)
[2019-11-22] MEDS: DOXAZOSIN MESYLATE 4MG TABLET PO SCH (08:20)
[2019-11-22] MEDS: DILTIAZEM HCL 180MG CAPSULE CD 24HR PO SCH ×2 (08:20→21:35)
[2019-11-22] MEDS: GUAIFENESIN 600MG ER TABLET PO SCH ×2 (08:20→21:35)
[2019-11-22] MEDS: INSULIN LISPRO 100 UNITS/ML SUBCUT SCH ×4 (08:21→21:00)
[2019-11-22] MEDS: FLUTICASONE FUROATE 100 1 INH/CAP ORI SCH ×2 (08:42→17:14)
[2019-11-22] MEDS: INSULIN GLARGINE UD 100 UNITS/ML SYR SUBCUT SCH ×2 (10:33→21:42)
[2019-11-22 12:00] VITALS: BP 121/61
[2019-11-22 16:00] VITALS: BP 112/48
[2019-11-22 20:00] VITALS: BP 138/112
[2019-11-23] VITALS (9 sets, daily range): BP systolic 111–154; BP diastolic 54–85
[2019-11-23] MEDS: ALBUTEROL 6.7GM HFA INHALER ORI SCH ×3 (02:08→14:00)
[2019-11-23] MEDS: HYDRALAZINE HCL 100MG TABLET PO SCH ×3 (05:34→22:12)
[2019-11-23] MEDS: BLOOD SUGAR DIAGNOSTIC STRIP TEST SCH ×4 (07:02→21:45)
[2019-11-23] MEDS: INSULIN LISPRO 100 UNITS/ML SUBCUT SCH ×4 (08:10→22:29)
[2019-11-23] MEDS: FLUTICASONE FUROATE 100 1 INH/CAP ORI SCH ×2 (09:00→16:38)
[2019-11-23] MEDS: GUAIFENESIN 600MG ER TABLET PO SCH ×2 (09:00→09:34)
[2019-11-23] MEDS: ENOXAPARIN 30MG/0.3ML SYR SUBCUT SCH ×2 (09:33→21:45)
[2019-11-23] MEDS: DILTIAZEM HCL 180MG CAPSULE CD 24HR PO SCH ×2 (09:33→22:12)
[2019-11-23] MEDS: DOXAZOSIN MESYLATE 4MG TABLET PO SCH (09:33)
[2019-11-23] MEDS: ASPIRIN 81MG TABLET PO SCH (09:35)
[2019-11-23] MEDS: INSULIN GLARGINE UD 100 UNITS/ML SYR SUBCUT SCH ×2 (10:00→22:28)
[2019-11-24] VITALS: BP 138/69
[2019-11-24 04:00] VITALS: BP 145/59
[2019-11-24] MEDS: HYDRALAZINE HCL 100MG TABLET PO SCH (06:29)
[2019-11-24] MEDS: BLOOD SUGAR DIAGNOSTIC STRIP TEST SCH ×2 (07:38→12:40)
[2019-11-24 08:00] VITALS: BP 147/58
[2019-11-24] MEDS: ALBUTEROL 6.7GM HFA INHALER ORI SCH (08:41)
[2019-11-24] MEDS: INSULIN LISPRO 100 UNITS/ML SUBCUT SCH ×2 (08:42→12:58)
[2019-11-24] MEDS: FLUTICASONE FUROATE 100 1 INH/CAP ORI SCH (08:42)
[2019-11-24] MEDS: ASPIRIN 81MG TABLET PO SCH (08:43)
[2019-11-24] MEDS: GUAIFENESIN 600MG ER TABLET PO SCH (08:43)
[2019-11-24] MEDS: ENOXAPARIN 30MG/0.3ML SYR SUBCUT SCH (08:45)
[2019-11-24] MEDS: DILTIAZEM HCL 180MG CAPSULE CD 24HR PO SCH (08:49)
[2019-11-24] MEDS: DOXAZOSIN MESYLATE 4MG TABLET PO SCH (08:50)
[2019-11-24] MEDS: INSULIN GLARGINE UD 100 UNITS/ML SYR SUBCUT SCH (10:30)
[2019-11-24 11:37] LABS: HEMATOCRIT. 32.8 % (42.0-52.0); HEMOGLOBIN. 10.5 g/dL (14.0-18.0); LYMPHOCYTES % 18.5 % (20.0-50.0); MEAN CORPUSCULAR VOLUME 84.4 fL (80.0-94.0); MONOCYTES % 12.9 % (2.0-8.0); NEUTROPHILS % 64.6 % (40.0-76.0); PLATELET 255 x1000/uL (130-400); RED BLOOD CELL COUNT 3.89 mill/uL (4.7-6.1); RED CELL DISTRIBUTION WIDTH 16.3 % (11.6-14.6)
[2019-11-24 11:53] LABS: PHOSPHORUS 2.8 mg/dL (2.5-4.9)
[2019-11-24 12:00] VITALS: BP 149/77
[2019-11-24 14:00] VITALS: BP 149/72
[2019-11-24 16:00] VITALS: BP 140/72
== END 2019-11-24 17:50 | DRG 871 ==
LOC: ER 00:29 → 7WST 02:07 → EDBEDREQTM 02:13 → EDBEDREQSVC 02:13 → EDBEDREQ 02:13 → ENRESERV 11:51
PROVIDERS: ADMIT Internal Medicine; ATTEND Internal Medicine
DX: A41.89 Other specified sepsis (principal); U07.1 COVID-19; J12.89 Other viral pneumonia; J96.01 Acute respiratory failure with hypoxia; D68.59 Other primary thrombophilia; E46 Unspecified protein-calorie malnutrition; I13.0 Hypertensive heart and chronic kidney disease with heart failure and stage 1 through stage 4 chronic kidney disease, or unspecified chronic kidney disease; I48.20 Chronic atrial fibrillation, unspecified; I48.92 Unspecified atrial flutter; N39.0 Urinary tract infection, site not specified; J44.0 Chronic obstructive pulmonary disease with (acute) lower respiratory infection; E87.0 Hyperosmolality and hypernatremia; N17.9 Acute kidney failure, unspecified; D72.810 Lymphocytopenia; E11.22 Type 2 diabetes mellitus with diabetic chronic kidney disease; G89.29 Other chronic pain; I25.10 Atherosclerotic heart disease of native coronary artery without angina pectoris; I50.9 Heart failure, unspecified; D64.9 Anemia, unspecified; E86.0 Dehydration; M17.12 Unilateral primary osteoarthritis, left knee; E87.6 Hypokalemia; I49.5 Sick sinus syndrome; K21.9 Gastro-esophageal reflux disease without esophagitis; M54.5 Low back pain; F01.50 Vascular dementia, unspecified severity, without behavioral disturbance, psychotic disturbance, mood disturbance, and anxiety; N18.3 Chronic kidney disease, stage 3 (moderate); Z95.0 Presence of cardiac pacemaker; Z79.4 Long term (current) use of insulin; Z82.49 Family history of ischemic heart disease and other diseases of the circulatory system; Z79.899 Other long term (current) drug therapy; Z68.36 Body mass index [BMI] 36.0-36.9, adult; Z79.82 Long term (current) use of aspirin
CPT/HCPCS: 36415; 36600; 71045; 80048; 80053; 81003; 82375; 82550; 82728; 82805; 82962; 83036; 83605; 83615; 83735; 83880; 84100; 84145; 84484; 85025; 85379; 86140; 87635; 87804; 93005; 94640; 99291; J0456; J0610; J1650; J1815; J2543; J2920; J3370; J3475; J3490; J7060; J7512; U0003-CS

== ENCOUNTER 2019-12-20 22:27 | Inpatient (IN) | payer MEDICARE, MEDICAID ==
[~2019-12-20] VITALS: Ht 182.9 cm; Wt 129.3 kg
[2019-12-20] MEDS ORDERED: ASPIRIN 81MG TABLET PO ONE (23:15)
[2019-12-20 23:59] LABS: BASOPHILS % 1.1 % (0.0-2.0); EOSINOPHILS % 1.5 % (0.0-5.0); HEMATOCRIT. 24.9 % (42.0-52.0); HEMOGLOBIN. 8.2 g/dL (14.0-18.0); LYMPHOCYTES % 13.9 % (20.0-50.0); MEAN CORPUSCULAR HEMOGLOBIN 28.1 pg (28.0-32.0); MEAN CORPUSCULAR VOLUME 85.7 fL (80.0-94.0); MEAN PLATELET VOLUME 8.8 fl (7.4-10.4); MONOCYTES % 12.5 % (2.0-8.0); PLATELET 198 x1000/uL (130-400); RED BLOOD CELL COUNT 2.91 mill/uL (4.7-6.1); RED CELL DISTRIBUTION WIDTH 19.9 % (11.6-14.6)
[2019-12-21] MEDS ORDERED: FUROSEMIDE 40MG/4ML VIAL IVP ONE
[2019-12-21 00:06] LABS: CHLORIDE 112 mEq/L (98-107)
[2019-12-21 06:25] VITALS: BP 117/73
[2019-12-21 08:00] VITALS: BP 134/67
[2019-12-21 08:10] VITALS: BP 137/67
[2019-12-21] MEDS ORDERED: ENOXAPARIN 30MG/0.3ML SYR SUBCUT ONE (10:00)
[2019-12-21] MEDS: ENOXAPARIN 30MG/0.3ML SYR SUBCUT SCH (10:10)
[2019-12-21] MEDS ORDERED: SODIUM CHLORIDE 0.9% 500 ML IV ONE (10:15)
[2019-12-21] MEDS ORDERED: FUROSEMIDE 40MG/4ML VIAL IVP NR (10:15)
[2019-12-21] MEDS ORDERED: LORAZEPAM 0.5MG TABLET PO PRN (11:45)
[2019-12-21] MEDS ORDERED: ONDANSETRON HCL 4MG/2ML INJ IV PRN (11:45)
[2019-12-21] MEDS ORDERED: ACETAMINOPHEN 325MG TABLET PO PRN (11:45)
[2019-12-21] MEDS: ALBUTEROL 6.7GM HFA INHALER ORI SCH ×2 (11:45→17:06)
[2019-12-21 12:00] VITALS: BP 134/68
[2019-12-21] MEDS ORDERED: IPRATROPIUM/ALBUTEROL 0.5-3(2.5)MG/3ML NEB NEB PRN (12:00)
[2019-12-21] MEDS ORDERED: IPRATROPIUM/ALBUTEROL 0.5-3(2.5)MG/3ML NEB HHN SCH (12:00)
[2019-12-21] MEDS: UMECLIDINIUM BROMIDE 1 INH BLST.W.DEV IH SCH (13:15)
[2019-12-21] MEDS: DILTIAZEM HCL 30MG TABLET PO SCH ×2 (13:38→21:21)
[2019-12-21] MEDS ORDERED: MAGNESIUM CITRATE 300ML SOLUTION PO NR (16:00)
[2019-12-21 16:30] VITALS: BP 145/86
[2019-12-21] MEDS: FUROSEMIDE 40MG/4ML VIAL IVP SCH (16:43)
[2019-12-21 20:00] VITALS: BP 135/56
[2019-12-21] MEDS: DOXAZOSIN MESYLATE 4MG TABLET PO SCH (21:21)
[2019-12-21] MEDS: INSULIN GLARGINE UD 100 UNITS/ML SYR SUBCUT SCH (21:57)
[2019-12-22] VITALS (7 sets, daily range): BP systolic 109–155; BP diastolic 54–84
[2019-12-22] MEDS: ALBUTEROL 6.7GM HFA INHALER ORI SCH ×2 (01:13→06:33)
[2019-12-22] MEDS ORDERED: DEXTROSE 50% WATER 50ML SYRINGE IV PRN (03:00)
[2019-12-22] MEDS: BLOOD SUGAR DIAGNOSTIC STRIP TEST SCH ×4 (06:30→21:43)
[2019-12-22] MEDS: FUROSEMIDE 40MG/4ML VIAL IVP SCH ×2 (06:30→17:38)
[2019-12-22] MEDS: DILTIAZEM HCL 30MG TABLET PO SCH ×3 (06:31→21:42)
[2019-12-22] MEDS: INSULIN LISPRO 100 UNITS/ML SUBCUT SCH ×4 (07:57→21:00)
[2019-12-22] MEDS: ENOXAPARIN 30MG/0.3ML SYR SUBCUT SCH (08:41)
[2019-12-22] MEDS: ASPIRIN 81MG TABLET PO SCH (08:41)
[2019-12-22] MEDS: UMECLIDINIUM BROMIDE 1 INH BLST.W.DEV IH SCH (09:00)
[2019-12-22 12:36] LABS: BASOPHILS % 1.1 % (0.0-2.0); EOSINOPHILS % 2.6 % (0.0-5.0); HEMATOCRIT. 24.9 % (42.0-52.0); LYMPHOCYTES % 19.9 % (20.0-50.0); MEAN CORPUSCULAR HEMOGLOBIN 27.6 pg (28.0-32.0); MEAN CORPUSCULAR VOLUME 86.2 fL (80.0-94.0); MEAN PLATELET VOLUME 8.5 fl (7.4-10.4); MONOCYTES % 13.5 % (2.0-8.0); NEUTROPHILS % 62.9 % (40.0-76.0); PLATELET 161 x1000/uL (130-400); RED BLOOD CELL COUNT 2.89 mill/uL (4.7-6.1); RED CELL DISTRIBUTION WIDTH 19.5 % (11.6-14.6)
[2019-12-22] MEDS: INSULIN GLARGINE UD 100 UNITS/ML SYR SUBCUT SCH ×2 (12:36→21:42)
[2019-12-22 12:42] LABS: CHLORIDE 111 mEq/L (98-107)
[2019-12-22 12:49] LABS: CREATINE KINASE 108 IU/L (39-308)
[2019-12-22 12:50] LABS: PHOSPHORUS 3.9 mg/dL (2.5-4.9)
[2019-12-22 12:51] LABS: TOTAL IRON BINDING CAPACITY 282 ug/dL (250-450)
[2019-12-22] MEDS ORDERED: FERROUS SULFATE 300MG/5ML UDC PO SCH (17:00)
[2019-12-22] MEDS: DOXAZOSIN MESYLATE 4MG TABLET PO SCH (21:42)
[2019-12-23] VITALS: BP 145/82
[2019-12-23] MEDS: ALBUTEROL (0.083%) 2.5MG/3ML NEB HHN SCH ×4 (01:55→21:49)
[2019-12-23 04:00] VITALS: BP 143/51
[2019-12-23] MEDS: FUROSEMIDE 40MG/4ML VIAL IVP SCH ×2 (06:22→18:31)
[2019-12-23] MEDS: DILTIAZEM HCL 30MG TABLET PO SCH (06:22)
[2019-12-23] MEDS: BLOOD SUGAR DIAGNOSTIC STRIP TEST SCH ×4 (06:23→20:29)
[2019-12-23] MEDS: INSULIN LISPRO 100 UNITS/ML SUBCUT SCH ×4 (06:32→20:45)
[2019-12-23 07:38] LABS: HEMATOCRIT. 24.8 % (42.0-52.0); HEMOGLOBIN. 7.9 g/dL (14.0-18.0); MEAN CORPUSCULAR HEMOGLOBIN 27.8 pg (28.0-32.0); MEAN CORPUSCULAR VOLUME 87.2 fL (80.0-94.0); MEAN PLATELET VOLUME 8.8 fl (7.4-10.4); PLATELET 146 x1000/uL (130-400); RED BLOOD CELL COUNT 2.84 mill/uL (4.7-6.1); RED CELL DISTRIBUTION WIDTH 19.7 % (11.6-14.6)
[2019-12-23 07:45] LABS: CHLORIDE 112 mEq/L (98-107)
[2019-12-23 07:50] LABS: PHOSPHORUS 2.9 mg/dL (2.5-4.9)
[2019-12-23 08:00] VITALS: BP 122/67
[2019-12-23] MEDS: IRON SUCROSE COMPLEX 100 MG/5 ML ML IV SCH (09:02)
[2019-12-23] MEDS: ENOXAPARIN 30MG/0.3ML SYR SUBCUT SCH (09:02)
[2019-12-23] MEDS: ASPIRIN 81MG TABLET PO SCH (09:02)
[2019-12-23] MEDS: UMECLIDINIUM BROMIDE 1 INH BLST.W.DEV IH SCH (09:03)
[2019-12-23 09:06] LABS: PLATELET ESTIMATE NORMAL
[2019-12-23] MEDS: INSULIN GLARGINE UD 100 UNITS/ML SYR SUBCUT SCH ×2 (11:34→22:26)
[2019-12-23] MEDS: DILTIAZEM HCL 300MG CAPSULE SR 24HR PO SCH (11:35)
[2019-12-23 12:00] VITALS: BP 137/56
[2019-12-23 16:00] VITALS: BP 133/68
[2019-12-23 20:00] VITALS: BP 140/63
[2019-12-23] MEDS: DOXAZOSIN MESYLATE 4MG TABLET PO SCH (20:29)
[2019-12-23] MEDS: BUDESONIDE 0.5MG/2ML NEB HHN SCH (21:49)
[2019-12-24] VITALS (7 sets, daily range): BP systolic 120–139; BP diastolic 52–70
[2019-12-24] MEDS: ALBUTEROL (0.083%) 2.5MG/3ML NEB HHN SCH ×4 (02:51→21:11)
[2019-12-24] MEDS: BLOOD SUGAR DIAGNOSTIC STRIP TEST SCH ×4 (06:02→22:46)
[2019-12-24] MEDS: FUROSEMIDE 40MG/4ML VIAL IVP SCH ×2 (06:16→17:11)
[2019-12-24] MEDS: INSULIN LISPRO 100 UNITS/ML SUBCUT SCH ×4 (06:17→22:47)
[2019-12-24 07:42] LABS: HEMATOCRIT. 25.2 % (42.0-52.0); MEAN CORPUSCULAR HEMOGLOBIN 27.7 pg (28.0-32.0); MEAN PLATELET VOLUME 8.7 fl (7.4-10.4); PLATELET 160 x1000/uL (130-400); RED BLOOD CELL COUNT 2.89 mill/uL (4.7-6.1); RED CELL DISTRIBUTION WIDTH 19.4 % (11.6-14.6)
[2019-12-24 08:10] LABS: PHOSPHORUS 3.1 mg/dL (2.5-4.9)
[2019-12-24] MEDS: ENOXAPARIN 40MG/0.4ML SYR SUBCUT SCH (09:17)
[2019-12-24] MEDS: ASPIRIN 81MG TABLET PO SCH (09:17)
[2019-12-24] MEDS: DILTIAZEM HCL 300MG CAPSULE SR 24HR PO SCH (09:18)
[2019-12-24] MEDS: INSULIN GLARGINE UD 100 UNITS/ML SYR SUBCUT SCH ×2 (09:19→22:50)
[2019-12-24] MEDS: IRON SUCROSE COMPLEX 100 MG/5 ML ML IV SCH (09:21)
[2019-12-24] MEDS: UMECLIDINIUM BROMIDE 1 INH BLST.W.DEV IH SCH (09:24)
[2019-12-24 09:51] LABS: NUCLEATED RED BLOOD CELLS 1 /100 WBC
[2019-12-24 09:53] LABS: PLATELET ESTIMATE NORMAL
[2019-12-24] MEDS: BUDESONIDE 0.5MG/2ML NEB HHN SCH ×2 (10:02→21:12)
[2019-12-24] MEDS: DOXAZOSIN MESYLATE 4MG TABLET PO SCH (22:41)
[2019-12-25] VITALS: BP 131/63
[2019-12-25] MEDS: ALBUTEROL (0.083%) 2.5MG/3ML NEB HHN SCH ×2 (03:10→09:40)
[2019-12-25 04:00] VITALS: BP 111/45
[2019-12-25] MEDS: BLOOD SUGAR DIAGNOSTIC STRIP TEST SCH ×4 (06:05→21:16)
[2019-12-25] MEDS: INSULIN LISPRO 100 UNITS/ML SUBCUT SCH ×5 (06:15→21:27)
[2019-12-25 06:17] LABS: BASOPHILS % 0.4 % (0.0-2.0); EOSINOPHILS % 3.2 % (0.0-5.0); HEMATOCRIT. 25.4 % (42.0-52.0); HEMOGLOBIN. 8.5 g/dL (14.0-18.0); LYMPHOCYTES % 18.6 % (20.0-50.0); MEAN CORPUSCULAR HEMOGLOBIN 29.2 pg (28.0-32.0); MEAN CORPUSCULAR VOLUME 87.5 fL (80.0-94.0); MEAN PLATELET VOLUME 8.7 fl (7.4-10.4); MONOCYTES % 14.6 % (2.0-8.0); NEUTROPHILS % 63.2 % (40.0-76.0); PLATELET 159 x1000/uL (130-400); RED BLOOD CELL COUNT 2.91 mill/uL (4.7-6.1); RED CELL DISTRIBUTION WIDTH 19.9 % (11.6-14.6)
[2019-12-25 06:19] LABS: PHOSPHORUS 3.4 mg/dL (2.5-4.9)
[2019-12-25 08:00] VITALS: BP 148/67
[2019-12-25] MEDS: BUDESONIDE 0.5MG/2ML NEB HHN SCH ×2 (09:40→20:35)
[2019-12-25] MEDS: ASPIRIN 81MG TABLET PO SCH (10:06)
[2019-12-25] MEDS: INSULIN GLARGINE UD 100 UNITS/ML SYR SUBCUT SCH ×2 (10:07→21:26)
[2019-12-25] MEDS: DILTIAZEM HCL 300MG CAPSULE SR 24HR PO SCH (10:07)
[2019-12-25] MEDS: UMECLIDINIUM BROMIDE 1 INH BLST.W.DEV IH SCH (10:07)
[2019-12-25] MEDS: FUROSEMIDE 40MG/4ML VIAL IVP SCH (10:07)
[2019-12-25] MEDS: IRON SUCROSE COMPLEX 100 MG/5 ML ML IV SCH (10:08)
[2019-12-25] MEDS: ENOXAPARIN 40MG/0.4ML SYR SUBCUT SCH (10:08)
[2019-12-25] MEDS ORDERED: IPRATROPIUM/ALBUTEROL 0.5-3(2.5)MG/3ML NEB NEB PRN (10:15)
[2019-12-25] MEDS ORDERED: LIDOCAINE HCL/PF 1% 2ML VIAL ONE (11:46)
[2019-12-25 12:00] VITALS: BP 144/58
[2019-12-25] MEDS: IPRATROPIUM/ALBUTEROL 0.5-3(2.5)MG/3ML NEB HHN SCH ×2 (12:30→20:45)
[2019-12-25 14:51] LABS: BG BASE EXCESS 2.8 mmol/L (-2.0-2.0); BG CARBOXYHEMOGLOBIN 0.3 % (0.5-1.5); BG DEOXYHEMOGLOBIN 8.4 % (0.0-5.0); BG FRACTION INSPIRED OXYGEN 28; BG HCO3 ACT 29.8 mmol/L (22.0-26.0); BG METHEMOGLOBIN 0.1 % (0.0-1.5); BG OXYGEN SATURATION 91.6 % (92.0-98.5); BG OXYHEMOGLOBIN 91.2 % (94.0-97.0); BG PH 7.307 (7.350-7.450); BG PO2 66.3 mmHg (75.0-100.0); BG SAMPLE SITE RIGHT RADIAL; BG TOTAL HEMOGLOBIN 8.6 g/dL (12.0-18.0); BG VENT MODE NASAL CANNULA
[2019-12-25 16:00] VITALS: BP 112/72
[2019-12-25] MEDS: FUROSEMIDE 40MG TABLET PO SCH (17:44)
[2019-12-25] MEDS ORDERED: FUROSEMIDE 40MG TABLET PO SCH (18:00)
[2019-12-25 20:00] VITALS: BP 128/45
[2019-12-25] MEDS: DOXAZOSIN MESYLATE 4MG TABLET PO SCH (21:07)
[2019-12-26] VITALS: BP 114/31
[2019-12-26] MEDS: IPRATROPIUM/ALBUTEROL 0.5-3(2.5)MG/3ML NEB HHN SCH ×6 (00:35→21:36)
[2019-12-26 04:00] VITALS: BP 134/35
[2019-12-26] MEDS: FUROSEMIDE 40MG TABLET PO SCH (06:29)
[2019-12-26] MEDS: INSULIN LISPRO 100 UNITS/ML SUBCUT SCH ×4 (06:44→22:25)
[2019-12-26] MEDS: BLOOD SUGAR DIAGNOSTIC STRIP TEST SCH ×5 (06:44→23:22)
[2019-12-26 08:00] VITALS: BP 140/72
[2019-12-26] MEDS: DILTIAZEM HCL 300MG CAPSULE SR 24HR PO SCH (08:39)
[2019-12-26] MEDS: ENOXAPARIN 40MG/0.4ML SYR SUBCUT SCH (08:40)
[2019-12-26] MEDS: UMECLIDINIUM BROMIDE 1 INH BLST.W.DEV IH SCH (08:40)
[2019-12-26] MEDS: IRON SUCROSE COMPLEX 100 MG/5 ML ML IV SCH (08:40)
[2019-12-26] MEDS: BUDESONIDE 0.5MG/2ML NEB HHN SCH (08:56)
[2019-12-26] MEDS: INSULIN GLARGINE UD 100 UNITS/ML SYR SUBCUT SCH ×2 (09:59→22:36)
[2019-12-26 12:00] VITALS: BP 131/68
[2019-12-26 15:49] LABS: BG BASE EXCESS 4.9 mmol/L (-2.0-2.0); BG CARBOXYHEMOGLOBIN 0.5 % (0.5-1.5); BG DEOXYHEMOGLOBIN 9.6 % (0.0-5.0); BG HCO3 ACT 31.4 mmol/L (22.0-26.0); BG METHEMOGLOBIN 0.3 % (0.0-1.5); BG OXYGEN SATURATION 90.3 % (92.0-98.5); BG OXYHEMOGLOBIN 89.6 % (94.0-97.0); BG PH 7.351 (7.350-7.450); BG PO2 61.5 mmHg (75.0-100.0); BG SAMPLE SITE RIGHT RADIAL; BG TOTAL HEMOGLOBIN 8.6 g/dL (12.0-18.0); BG VENT MODE NASAL CANNULA
[2019-12-26 16:00] VITALS: BP 145/63
[2019-12-26] MEDS: FUROSEMIDE 40MG/4ML VIAL IVP SCH (17:44)
[2019-12-26 20:00] VITALS: BP 115/68
[2019-12-26] MEDS: DOXAZOSIN MESYLATE 4MG TABLET PO SCH (21:29)
[2019-12-27] VITALS: BP 131/43
[2019-12-27] MEDS: IPRATROPIUM/ALBUTEROL 0.5-3(2.5)MG/3ML NEB HHN SCH ×5 (00:44→20:57)
[2019-12-27 04:00] VITALS: BP 104/38
[2019-12-27] MEDS: BLOOD SUGAR DIAGNOSTIC STRIP TEST SCH ×3 (07:20→17:32)
[2019-12-27] MEDS: INSULIN LISPRO 100 UNITS/ML SUBCUT SCH ×4 (07:32→21:00)
[2019-12-27 08:00] VITALS: BP 109/67
[2019-12-27] MEDS: DILTIAZEM HCL 300MG CAPSULE SR 24HR PO SCH (09:00)
[2019-12-27] MEDS: UMECLIDINIUM BROMIDE 1 INH BLST.W.DEV IH SCH (09:33)
[2019-12-27] MEDS: ENOXAPARIN 40MG/0.4ML SYR SUBCUT SCH (09:34)
[2019-12-27] MEDS: FUROSEMIDE 40MG/4ML VIAL IVP SCH ×2 (09:34→17:48)
[2019-12-27] MEDS: INSULIN GLARGINE UD 100 UNITS/ML SYR SUBCUT SCH ×2 (09:52→22:18)
[2019-12-27 09:54] LABS: BASOPHILS % 0.8 % (0.0-2.0); EOSINOPHILS % 3.6 % (0.0-5.0); HEMATOCRIT. 25.9 % (42.0-52.0); HEMOGLOBIN. 8.3 g/dL (14.0-18.0); LYMPHOCYTES % 19.8 % (20.0-50.0); MEAN CORPUSCULAR HEMOGLOBIN 28.2 pg (28.0-32.0); MEAN PLATELET VOLUME 8.9 fl (7.4-10.4); MONOCYTES % 14.4 % (2.0-8.0); NEUTROPHILS % 61.4 % (40.0-76.0); PLATELET 164 x1000/uL (130-400); RED BLOOD CELL COUNT 2.95 mill/uL (4.7-6.1); RED CELL DISTRIBUTION WIDTH 20.4 % (11.6-14.6)
[2019-12-27 12:00] VITALS: BP 129/57
[2019-12-27 16:00] VITALS: BP 135/62
[2019-12-27 20:00] VITALS: BP 117/63
[2019-12-27] MEDS: DOXAZOSIN MESYLATE 4MG TABLET PO SCH (22:14)
[2019-12-28] VITALS: BP 137/53
[2019-12-28] MEDS: IPRATROPIUM/ALBUTEROL 0.5-3(2.5)MG/3ML NEB HHN SCH ×6 (00:40→20:52)
[2019-12-28 04:00] VITALS: BP 153/73
[2019-12-28] MEDS: BLOOD SUGAR DIAGNOSTIC STRIP TEST SCH ×4 (06:45→21:00)
[2019-12-28] MEDS: INSULIN LISPRO 100 UNITS/ML SUBCUT SCH ×4 (07:15→22:07)
[2019-12-28 08:00] VITALS: BP 143/73
[2019-12-28] MEDS: DILTIAZEM HCL 180MG CAPSULE CD 24HR PO SCH (09:19)
[2019-12-28] MEDS: ENOXAPARIN 40MG/0.4ML SYR SUBCUT SCH (09:19)
[2019-12-28] MEDS: FUROSEMIDE 40MG/4ML VIAL IVP SCH ×2 (09:19→17:44)
[2019-12-28] MEDS: INSULIN GLARGINE UD 100 UNITS/ML SYR SUBCUT SCH ×3 (09:20→22:13)
[2019-12-28 10:50] LABS: BG BASE EXCESS 1.9 mmol/L (-2.0-2.0); BG CARBOXYHEMOGLOBIN 0.7 % (0.5-1.5); BG DEOXYHEMOGLOBIN 48.2 % (0.0-5.0); BG FRACTION INSPIRED OXYGEN 21; BG HCO3 ACT 28.3 mmol/L (22.0-26.0); BG METHEMOGLOBIN 0.3 % (0.0-1.5); BG OXYGEN SATURATION 51.3 % (92.0-98.5); BG OXYHEMOGLOBIN 50.8 % (94.0-97.0); BG PCO2 54.6 mmHg (35.0-45.0); BG PH 7.332 (7.350-7.450); BG PO2 36.1 mmHg (75.0-100.0); BG SAMPLE SITE RIGHT RADIAL; BG TOTAL HEMOGLOBIN 7.9 g/dL (12.0-18.0); BG VENT MODE ROOM AIR
[2019-12-28 12:00] VITALS: BP 146/72
[2019-12-28] MEDS: BUDESONIDE 0.5MG/2ML NEB HHN SCH ×2 (12:42→20:52)
[2019-12-28] MEDS: METHYLPREDNISOLONE SOD SUCC 40 MG/ML VIAL IV SCH ×2 (12:51→17:44)
[2019-12-28 16:00] VITALS: BP 135/42
[2019-12-28 20:00] VITALS: BP 126/57
[2019-12-28] MEDS: DOXAZOSIN MESYLATE 4MG TABLET PO SCH (22:00)
[2019-12-29] VITALS: BP 129/66
[2019-12-29] MEDS: IPRATROPIUM/ALBUTEROL 0.5-3(2.5)MG/3ML NEB HHN SCH ×6 (00:36→20:35)
[2019-12-29 04:00] VITALS: BP 138/64
[2019-12-29] MEDS: BLOOD SUGAR DIAGNOSTIC STRIP TEST SCH ×4 (06:29→20:57)
[2019-12-29] MEDS: INSULIN LISPRO 100 UNITS/ML SUBCUT SCH ×4 (06:32→21:12)
[2019-12-29 08:00] VITALS: BP 136/67
[2019-12-29] MEDS: BUDESONIDE 0.5MG/2ML NEB HHN SCH ×2 (08:59→20:35)
[2019-12-29] MEDS: METHYLPREDNISOLONE SOD SUCC 40 MG/ML VIAL IV SCH ×2 (09:18→17:58)
[2019-12-29] MEDS: FUROSEMIDE 40MG/4ML VIAL IVP SCH ×2 (09:18→17:58)
[2019-12-29] MEDS: ENOXAPARIN 40MG/0.4ML SYR SUBCUT SCH (09:18)
[2019-12-29] MEDS: DILTIAZEM HCL 180MG CAPSULE CD 24HR PO SCH (09:18)
[2019-12-29] MEDS: UMECLIDINIUM BROMIDE 1 INH BLST.W.DEV IH SCH (09:19)
[2019-12-29] MEDS: INSULIN GLARGINE UD 100 UNITS/ML SYR SUBCUT SCH ×2 (09:30→21:12)
[2019-12-29 12:00] VITALS: BP 138/64
[2019-12-29 16:00] VITALS: BP 157/76
[2019-12-29 20:00] VITALS: BP 144/52
[2019-12-29] MEDS: DOXAZOSIN MESYLATE 4MG TABLET PO SCH (21:11)
[2019-12-30] VITALS: BP 105/48
[2019-12-30] MEDS: IPRATROPIUM/ALBUTEROL 0.5-3(2.5)MG/3ML NEB HHN SCH ×6 (00:15→20:54)
[2019-12-30] MEDS: ACETYLCYSTEINE 100MG/ML 10% VIAL 4ML INH SCH ×2 (01:01→12:27)
[2019-12-30 04:00] VITALS: BP 138/70
[2019-12-30] MEDS: BLOOD SUGAR DIAGNOSTIC STRIP TEST SCH ×4 (06:46→20:51)
[2019-12-30] MEDS: INSULIN LISPRO 100 UNITS/ML SUBCUT SCH ×4 (06:50→20:50)
[2019-12-30 06:51] LABS: BASOPHILS % 0.2 % (0.0-2.0); HEMATOCRIT. 25.2 % (42.0-52.0); HEMOGLOBIN. 7.9 g/dL (14.0-18.0); LYMPHOCYTES % 12.3 % (20.0-50.0); MEAN CORPUSCULAR VOLUME 89.3 fL (80.0-94.0); MEAN PLATELET VOLUME 9.1 fl (7.4-10.4); MONOCYTES % 5.4 % (2.0-8.0); NEUTROPHILS % 82.1 % (40.0-76.0); PLATELET 154 x1000/uL (130-400); RED BLOOD CELL COUNT 2.82 mill/uL (4.7-6.1); RED CELL DISTRIBUTION WIDTH 21.3 % (11.6-14.6)
[2019-12-30 08:00] VITALS: BP 165/87
[2019-12-30] MEDS: UMECLIDINIUM BROMIDE 1 INH BLST.W.DEV IH SCH (09:32)
[2019-12-30] MEDS: METHYLPREDNISOLONE SOD SUCC 40 MG/ML VIAL IV SCH (09:32)
[2019-12-30] MEDS: ENOXAPARIN 40MG/0.4ML SYR SUBCUT SCH (09:34)
[2019-12-30] MEDS: DILTIAZEM HCL 180MG CAPSULE CD 24HR PO SCH (09:34)
[2019-12-30] MEDS: FUROSEMIDE 40MG/4ML VIAL IVP SCH ×2 (09:36→16:35)
[2019-12-30] MEDS: BUDESONIDE 0.5MG/2ML NEB HHN SCH ×2 (09:39→20:54)
[2019-12-30] MEDS: INSULIN GLARGINE UD 100 UNITS/ML SYR SUBCUT SCH ×2 (10:58→22:19)
[2019-12-30 12:00] VITALS: BP 155/81
[2019-12-30 16:00] VITALS: BP 156/85
[2019-12-30 20:00] VITALS: BP 160/83
[2019-12-30] MEDS: DOXAZOSIN MESYLATE 4MG TABLET PO SCH (20:49)
[2019-12-31] VITALS: BP 141/71
[2019-12-31] MEDS: IPRATROPIUM/ALBUTEROL 0.5-3(2.5)MG/3ML NEB HHN SCH ×5 (01:01→20:37)
[2019-12-31 04:00] VITALS: BP 151/66
[2019-12-31 05:48] LABS: PHOSPHORUS 3.3 mg/dL (2.5-4.9)
[2019-12-31] MEDS: BLOOD SUGAR DIAGNOSTIC STRIP TEST SCH ×4 (06:02→20:56)
[2019-12-31] MEDS: INSULIN LISPRO 100 UNITS/ML SUBCUT SCH ×4 (06:34→22:28)
[2019-12-31 06:54] LABS: BASOPHILS % 0.3 % (0.0-2.0); HEMATOCRIT. 24.3 % (42.0-52.0); HEMOGLOBIN. 7.8 g/dL (14.0-18.0); MEAN CORPUSCULAR HEMOGLOBIN 28.4 pg (28.0-32.0); MEAN CORPUSCULAR VOLUME 88.2 fL (80.0-94.0); MEAN PLATELET VOLUME 8.9 fl (7.4-10.4); MONOCYTES % 8.6 % (2.0-8.0); NEUTROPHILS % 80.1 % (40.0-76.0); PLATELET 162 x1000/uL (130-400); RED BLOOD CELL COUNT 2.76 mill/uL (4.7-6.1); RED CELL DISTRIBUTION WIDTH 21.3 % (11.6-14.6)
[2019-12-31 08:00] VITALS: BP 148/73
[2019-12-31] MEDS: BUDESONIDE 0.5MG/2ML NEB HHN SCH (08:19)
[2019-12-31] MEDS: ACETYLCYSTEINE 100MG/ML 10% VIAL 4ML INH SCH ×2 (08:19→20:37)
[2019-12-31] MEDS: FUROSEMIDE 40MG/4ML VIAL IVP SCH ×2 (08:34→17:05)
[2019-12-31] MEDS: ENOXAPARIN 40MG/0.4ML SYR SUBCUT SCH (08:34)
[2019-12-31] MEDS: DILTIAZEM HCL 180MG CAPSULE CD 24HR PO SCH (08:34)
[2019-12-31] MEDS: PREDNISONE 20MG TABLET PO SCH (08:34)
[2019-12-31] MEDS: UMECLIDINIUM BROMIDE 1 INH BLST.W.DEV IH SCH (08:35)
[2019-12-31] MEDS: INSULIN GLARGINE UD 100 UNITS/ML SYR SUBCUT SCH ×2 (09:34→22:30)
[2019-12-31] MEDS: THROAT LOZENGES-BENZOCAINE/MENTH/CETYLPYRD CL LOZENGES MM PRN (11:40)
[2019-12-31 12:00] VITALS: BP 128/88
[2019-12-31 16:00] VITALS: BP 138/82
[2019-12-31 20:00] VITALS: BP 161/77
[2019-12-31] MEDS ORDERED: DOXAZOSIN MESYLATE 4MG TABLET PO SCH (21:00)
[2020-01-01] VITALS: BP 147/80
[2020-01-01] MEDS: IPRATROPIUM/ALBUTEROL 0.5-3(2.5)MG/3ML NEB HHN SCH ×3 (00:20→14:25)
[2020-01-01 04:00] VITALS: BP 141/63
[2020-01-01] MEDS: BLOOD SUGAR DIAGNOSTIC STRIP TEST SCH ×3 (05:57→16:25)
[2020-01-01] MEDS: INSULIN LISPRO 100 UNITS/ML SUBCUT SCH ×3 (06:00→16:43)
[2020-01-01 08:00] VITALS: BP 138/74
[2020-01-01] MEDS: ACETYLCYSTEINE 100MG/ML 10% VIAL 4ML INH SCH (08:41)
[2020-01-01] MEDS: DILTIAZEM HCL 180MG CAPSULE CD 24HR PO SCH (09:44)
[2020-01-01] MEDS: PREDNISONE 20MG TABLET PO SCH (09:44)
[2020-01-01] MEDS: FUROSEMIDE 40MG/4ML VIAL IVP SCH ×2 (09:44→16:37)
[2020-01-01] MEDS: ENOXAPARIN 40MG/0.4ML SYR SUBCUT SCH (09:45)
[2020-01-01] MEDS: UMECLIDINIUM BROMIDE 1 INH BLST.W.DEV IH SCH (09:47)
[2020-01-01] MEDS: INSULIN GLARGINE UD 100 UNITS/ML SYR SUBCUT SCH (09:48)
[2020-01-01 12:00] VITALS: BP 148/76
[2020-01-01 16:00] VITALS: BP 159/69
[2020-01-01] MEDS: THROAT LOZENGES-BENZOCAINE/MENTH/CETYLPYRD CL LOZENGES MM PRN (16:16)
[2020-01-01 17:43] VITALS: BP 158/80
== END 2020-01-01 20:45 | DRG 291 ==
LOC: ER 22:27 → 7WST 12-21 01:12 → EDBEDREQ 12-21 04:21 → ENRESERV 12-21 05:30 → 5WST 12-22 09:15
PROVIDERS: ADMIT Internal Medicine; ATTEND Internal Medicine
PROC: 5A09357 Assistance with Respiratory Ventilation, Less than 24 Consecutive Hours, Continuous Positive Airway Pressure (ICD-10-PCS; principal; 2019-12-25)
PROC: 5A09357 Assistance with Respiratory Ventilation, Less than 24 Consecutive Hours, Continuous Positive Airway Pressure (ICD-10-PCS; 2019-12-26)
DX: I13.0 Hypertensive heart and chronic kidney disease with heart failure and stage 1 through stage 4 chronic kidney disease, or unspecified chronic kidney disease (principal); J96.01 Acute respiratory failure with hypoxia; E43 Unspecified severe protein-calorie malnutrition; I50.43 Acute on chronic combined systolic (congestive) and diastolic (congestive) heart failure; I48.20 Chronic atrial fibrillation, unspecified; I48.92 Unspecified atrial flutter; N17.9 Acute kidney failure, unspecified; D63.8 Anemia in other chronic diseases classified elsewhere; E11.22 Type 2 diabetes mellitus with diabetic chronic kidney disease; E66.9 Obesity, unspecified; E87.5 Hyperkalemia; F03.90 Unspecified dementia, unspecified severity, without behavioral disturbance, psychotic disturbance, mood disturbance, and anxiety; I25.10 Atherosclerotic heart disease of native coronary artery without angina pectoris; I27.20 Pulmonary hypertension, unspecified; J44.9 Chronic obstructive pulmonary disease, unspecified; N18.3 Chronic kidney disease, stage 3 (moderate); N40.0 Benign prostatic hyperplasia without lower urinary tract symptoms; D50.9 Iron deficiency anemia, unspecified; E11.649 Type 2 diabetes mellitus with hypoglycemia without coma; G89.29 Other chronic pain; I49.5 Sick sinus syndrome; M10.9 Gout, unspecified; R74.0 Nonspecific elevation of levels of transaminase and lactic acid dehydrogenase [LDH]; M25.569 Pain in unspecified knee; Z20.828 Contact with and (suspected) exposure to other viral communicable diseases; Z79.4 Long term (current) use of insulin; Z79.899 Other long term (current) drug therapy; Z95.0 Presence of cardiac pacemaker; Z86.73 Personal history of transient ischemic attack (TIA), and cerebral infarction without residual deficits; Z82.49 Family history of ischemic heart disease and other diseases of the circulatory system; Z87.440 Personal history of urinary (tract) infections; Z87.891 Personal history of nicotine dependence; Z79.82 Long term (current) use of aspirin
CPT/HCPCS: 36415; 36600; 71045; 76604; 76770; 80048; 80053; 82375; 82550; 82805; 82962; 83540; 83550; 83735; 83880; 84100; 84484; 85025; 93005; 94640; 99291; J1650; J1815; J1940; J2920; J3490; J7512; J7608; J7626; U0003-CS